=== PATIENT | female | born 1970 | race Caucasian/White ===

== ENCOUNTER 2022-09-01 04:32 | Day surgery (SDC) | payer OTHER ==
[2022-07-02 14:21] VITALS: BMI 27.1
[2022-09-01 11:34] VITALS: TEMP 98.2
[2022-09-01 12:16] VITALS: BP 107/57; PULSE 60; RESP 14
== END 2022-09-01 12:50 | disposition home or self-care (01) ==
LOC: JASU-ENDO 04:32
PROVIDERS: ATTEND Internal Medicine Gastroenterology
PROC: 0DBH8ZX Excision of Cecum, Via Natural or Artificial Opening Endoscopic, Diagnostic (ICD-10-PCS; 2022-09-01)
PROC: 0DBK8ZX Excision of Ascending Colon, Via Natural or Artificial Opening Endoscopic, Diagnostic (ICD-10-PCS; principal; 2022-09-01 11:30)
DX: D12.0 Benign neoplasm of cecum (principal); K63.5 Polyp of colon; K64.8 Other hemorrhoids; I10 Essential (primary) hypertension
CPT/HCPCS: 88305-TC